=== PATIENT | female | born 1935 | race Caucasian/White ===

== ENCOUNTER 2016-08-15 17:13 | Emergency (ER) | payer MEDICARE, OTHER ==
[~2016-08-15] VITALS: Ht 147.3 cm; Wt 50.0 kg
[~2016-08-15 17:13] MED LIST: CEPH-460 PO; NAPR500T PO
[2016-08-15 17:21] VITALS: BP 196/95; PULSE 88; RESP 15; TEMP 97.9; O2SAT 98
[2016-08-15] MEDS ORDERED: OMEP20TA PO (17:34)
[2016-08-15 17:39] VITALS: BP 161/81; PULSE 79; RESP 17; O2SAT 100
[2016-08-15] MEDS ORDERED: SODIUM CHLORIDE 0.9% FLUSH 5 ML FLUSH IVF PRN (17:45)
[2016-08-15 17:54] VITALS: O2SAT 100
--- NOTE | 2016-08-15 17:58 | PD ---
HPI Chief Complaint: Pain: Acute or Chronic Time Seen by Provider: 17:30 Travel History International Travel<30 days: No Contact w/Intl Traveler<30days: No Traveled to known affect area: No History of Present Illness HPI Patient is an 80-year-old female presenting to the emergency room for evaluation of left foot pain. Patient states it's been hurting her for 2-3 days. She denies any injury or trauma. She states that her left lower leg is chronically swollen, she was using compression hose but discontinued them. Patient reports feeling very tired and fatigued. She had an EGD done last week due to anemia. Patient's friend/caregiver is present with her. PFSH Past Medical History Arthritis: Yes Asthma: No Autoimmune Disease: Yes (LUPUS) Blood Disorders: No Anxiety: No Depression: No Heart Rhythm Problems: No Cancer: Yes (SCC SKIN CA) Cardiovascular Problems: No High Cholesterol: No Chemotherapy: No Chest Pain: No Congestive Heart Failure: No COPD: No Cerebrovascular Accident: No Diabetes: Yes Patient Takes Glucophage: No Diminished Hearing: Yes (BILATERAL) Endocrine: Yes Gastrointestinal Disorders: Yes (CHRONIC CONSTIPATION) GERD: Yes Glaucoma: No Genitourinary: Yes (BLADDER STIMULATOR) Headaches: No Hiatal Hernia: No Kidney Stones: No Musculoskeletal: Yes (chronic back pain) Neurologic: No Psychiatric: No Reproductive: No Respiratory: No Immunizations Current: Yes Migraines: No Radiation Therapy: No Renal Failure: No Seizures: No Sickle Cell Disease: No Sleep Apnea: No Thyroid Disease: No Ulcer: No Tetanus Vaccination: Unknown Influenza Vaccination: Yes ?: Not Menopausal: Yes : 0 Past Surgical History Abdominal Surgery: No AICD: No Arteriovenous Shunt: No Cardiac Surgery: No Ear Surgery: No Endocrine Surgery: No Eye Surgery: Yes (SHERICE CATARACT REMOVAL) Genitourinary Surgery: Yes (BLADDER STIMULATOR) Gynecologic Surgery: No Insulin Pump: No Joint Replacement: Yes (BILATERAL hips) Pacemaker: No Thoracic Surgery: No Tonsillectomy: Yes Other Surgery: Yes Social History Alcohol Use: No Tobacco Use: No Substance Use: No Allergies-Medications (Allergen,Severity, Reaction): Coded Allergies: No Known Allergies (Verified , 08/15/16) Reported Meds & Prescriptions Reported Meds & Active Scripts Active Reported Omeprazole 20 Mg Tab 20 Mg PO BID Review of Systems Except as stated in HPI: all other systems reviewed are Neg General / Constitutional: Positive: Other (fatigue) HENT: No: Headaches Cardiovascular: No: Chest Pain or Discomfort Respiratory: No: Shortness of Breath Genitourinary: No: Dysuria Musculoskeletal: Positive: Myalgias, Edema, Pain Skin: Positive Change in Pigmentation Neurologic: No: Dizziness, Focal Abnormalities Physical Exam Narrative GENERAL: Thin, well-developed, alert elderly female. Resting comfortably in no acute distress. SKIN: Warm and dry. Ecchymosis noted to the plantar aspect of the left fourth toe, tender to palpation. HEAD: Atraumatic. Normocephalic. EYES: Pupils equal and round. No scleral icterus. No injection or drainage. Pale conjunctiva ENT: No nasal bleeding or discharge. Mucous membranes pink and moist. NECK: Trachea midline. No JVD. CARDIOVASCULAR: Regular rate and rhythm. No murmur appreciated. RESPIRATORY: No accessory muscle use. Clear to auscultation. Breath sounds equal , diminished in bases. GASTROINTESTINAL: Abdomen soft, non-tender, nondistended. Hepatic and splenic margins not palpable. MUSCULOSKELETAL: No obvious deformities. No clubbing. No cyanosis. 2+ pitting Edema to left lower leg, positive pedal pulses. NEUROLOGICAL: Awake and alert. No obvious cranial nerve deficits. Motor grossly within normal limits. Normal speech. PSYCHIATRIC: Appropriate mood and affect; insight and judgment normal. Data Data Last Documented VS Vital Signs Date Time Temp Pulse Resp B/P Pulse Ox O2 Delivery O2 Flow Rate FiO2 08/15/16 18:58 67 16 188/93 100 Room Air 08/15/16 17:21 97.9 Orders Complete Blood Count With Diff (08/15/16 17:40) Comprehensive Metabolic Panel (08/15/16 17:40) B-Type Natriuretic Peptide (08/15/16 17:40) Magnesium (Mg) (08/15/16 17:40) Iv Access Insert/Monitor (08/15/16 17:40) Electrocardiogram (08/15/16 17:40) Ecg Monitoring (08/15/16 17:40) Oximetry (08/15/16 17:40) Oxygen Administration (08/15/16 17:40) Sodium Chloride 0.9% Flush (Ns Flush) (08/15/16 17:45) Foot, Complete ([id number]) (08/15/16 ) Type And Screen (08/15/16 17:40) Acetaminophen (Tylenol) (08/15/16 19:30) Labs Laboratory Tests Test 08/15/16 17:50 White Blood Count 5.7 TH/MM3 Red Blood Count 3.55 MIL/MM3 Hemoglobin 9.0 GM/DL Hematocrit 28.5 % Mean Corpuscular Volume 80.4 FL Mean Corpuscular Hemoglobin 25.3 PG Mean Corpuscular Hemoglobin 31.4 % Concent Red Cell Distribution Width 16.8 % Platelet Count 323 TH/MM3 Mean Platelet Volume 7.8 FL Neutrophils (%) (Auto) 67.6 % Lymphocytes (%) (Auto) 23.2 % Monocytes (%) (Auto) 7.2 % Eosinophils (%) (Auto) 1.1 % Basophils (%) (Auto) 0.9 % Neutrophils # (Auto) 3.9 TH/MM3 Lymphocytes # (Auto) 1.3 TH/MM3 Monocytes # (Auto) 0.4 TH/MM3 Eosinophils # (Auto) 0.1 TH/MM3 Basophils # (Auto) 0.1 TH/MM3 CBC Comment DIFF FINAL Differential Comment Sodium Level 139 MEQ/L Potassium Level 4.3 MEQ/L Chloride Level 105 MEQ/L Carbon Dioxide Level 25.2 MEQ/L Anion Gap 9 MEQ/L Blood Urea Nitrogen 11 MG/DL Creatinine 0.82 MG/DL Estimat Glomerular Filtration 67 ML/MIN Rate Random Glucose 93 MG/DL Calcium Level 8.8 MG/DL Magnesium Level 2.2 MG/DL Total Bilirubin 0.3 MG/DL Aspartate Amino Transf 21 U/L (AST/SGOT) Alanine Aminotransferase 19 U/L (ALT/SGPT) Alkaline Phosphatase 84 U/L B-Type Natriuretic Peptide 193 PG/ML Total Protein 7.8 GM/DL Albumin 3.8 GM/DL Blood Type A POSITIVE Antibody Screen NEGATIVE MDM Medical Decision Making Medical Screen Exam Complete: Yes Emergency Medical Condition: Yes Interpretation(s) Laboratory Tests Test 08/15/16 17:50 White Blood Count 5.7 TH/MM3 Red Blood Count 3.55 MIL/MM3 Hemoglobin 9.0 GM/DL Hematocrit 28.5 % Mean Corpuscular Volume 80.4 FL Mean Corpuscular Hemoglobin 25.3 PG Mean Corpuscular Hemoglobin 31.4 % Concent Red Cell Distribution Width 16.8 % Platelet Count 323 TH/MM3 Mean Platelet Volume 7.8 FL Neutrophils (%) (Auto) 67.6 % Lymphocytes (%) (Auto) 23.2 % Monocytes (%) (Auto) 7.2 % Eosinophils (%) (Auto) 1.1 % Basophils (%) (Auto) 0.9 % Neutrophils # (Auto) 3.9 TH/MM3 Lymphocytes # (Auto) 1.3 TH/MM3 Monocytes # (Auto) 0.4 TH/MM3 Eosinophils # (Auto) 0.1 TH/MM3 Basophils # (Auto) 0.1 TH/MM3 CBC Comment DIFF FINAL Differential Comment Sodium Level 139 MEQ/L Potassium Level 4.3 MEQ/L Chloride Level 105 MEQ/L Carbon Dioxide Level 25.2 MEQ/L Anion Gap 9 MEQ/L Blood Urea Nitrogen 11 MG/DL Creatinine 0.82 MG/DL Estimat Glomerular Filtration 67 ML/MIN Rate Random Glucose 93 MG/DL Calcium Level 8.8 MG/DL Magnesium Level 2.2 MG/DL Total Bilirubin 0.3 MG/DL Aspartate Amino Transf 21 U/L (AST/SGOT) Alanine Aminotransferase 19 U/L (ALT/SGPT) Alkaline Phosphatase 84 U/L B-Type Natriuretic Peptide 193 PG/ML Total Protein 7.8 GM/DL Albumin 3.8 GM/DL Blood Type A POSITIVE Antibody Screen NEGATIVE Last Impressions Foot X-Ray 08/15/16 0000 Signed Impressions: Service Date/Time: Monday, August 15, 2016 17:43 - CONCLUSION: 1. Osteopenia. No acute fracture identified. Kenney Toney MD Vital Signs Date Time Temp Pulse Resp B/P Pulse Ox O2 Delivery O2 Flow Rate FiO2 08/15/16 17:39 79 17 161/81 100 Room Air 08/15/16 17:21 97.9 88 15 196/95 98 Differential Diagnosis CHF versus fracture versus contusion versus anemia versus other Narrative Course Patient is an 80-year-old female presented to the emergency department evaluation of left foot/left toe pain. She denied any injury or trauma. Patient is neurovascularly intact with a brisk less than 3 second capillary refill and a positive pedal pulse. There is ecchymosis noted to the plantar aspect of the left fourth and fifth toes. X-ray was negative for acute fracture. Patient's vital signs are stable, labs reviewed. Patient had an outpatient EGD done a week ago due to a downward trend in her hemoglobin. Patient was encouraged to follow-up with her primary care provider and GI doctor as scheduled. Chemistries unremarkable, BNP is 193. Patient has close follow-up with her primary doctor and program specialist. At this time we will discharge patient home. Patient was encouraged to rest, ice, elevate extremity. She was educated on the signs and symptoms of infection. She was encouraged to return to emergency department for any new or worsening symptoms. Patient was encouraged to take [id number] acetaminophen as needed and as directed for pain. Patient and caregiver verbalized understanding of these instructions. Patient is stable for discharge. Physician Communication Physician Communication Dr. Hopper Diagnosis Primary Impression: Contusion of toe of left foot Qualified Code: S90.122A - Contusion of toe of left foot, unspecified toe, initial encounter Additional Impression: Anemia Qualified Code: D64.9 - Anemia, unspecified type Referrals: Primary Care Physician 2 days Patient Instructions: Anemia (ED), Contusion in Adults (ED), General Instructions Additional Instructions: Follow-up with your primary doctor in 1-2 days Return to emergency department for any new or worsening symptoms Take over the counter acetaminophen as needed and as directed for pain Rest, ice, elevate extremity Return to emergency department for any new or worsening symptoms Med/Other Pt SpecificInfo: No Change to Meds Disposition: 01 DISCHARGE HOME Condition: Stable [place] Simon Aug 15, 2016 17:58
[2016-08-15 18:08] LABS: AUTOMATED NEUTROPHIL # 3.9 TH/MM3 (1.8-7.7); BASOPHIL # 0.1 TH/MM3 (0-0.2); BASOPHIL % 0.9 % (0.0-2.0); EOSINOPHIL # 0.1 TH/MM3 (0-0.4); EOSINOPHIL % 1.1 % (0.0-4.0); HEMATOCRIT 28.5 % (35.0-46.0); HEMO FLAGS DIFF FINAL; LYMPH % 23.2 % (9.0-44.0); LYMPHOCYTE # 1.3 TH/MM3 (1.0-4.8); MEAN CELL VOLUME 80.4 FL (80.0-100.0); MEAN CORPUSCULAR HEMOGLOBIN 25.3 PG (27.0-34.0); MEAN CORPUSCULAR HGB CONC 31.4 % (32.0-36.0); MONO % 7.2 % (0.0-8.0); NEUT % 67.6 % (16.0-70.0); PLATELET COUNT 323 TH/MM3 (150-450); RED BLOOD COUNT 3.55 MIL/MM3 (4.00-5.30); RED CELL DISTRIBUTION WIDTH 16.8 % (11.6-17.2); WHITE BLOOD COUNT 5.7 TH/MM3 (4.0-11.0)
[2016-08-15 18:35] LABS: ALT (GPT) 19 U/L (10-53); ANION GAP 9 MEQ/L (5-15); AST (GOT) 21 U/L (15-37); BICARBONATE 25.2 MEQ/L (21.0-32.0); BLOOD UREA NITROGEN 11 MG/DL (7-18); CHLORIDE 105 MEQ/L (98-107); GLOMERULAR FILTRATION RATE 67 ML/MIN (>89); MAGNESIUM 2.2 MG/DL (1.5-2.5); POTASSIUM 4.3 MEQ/L (3.5-5.1); SODIUM (NA) 139 MEQ/L (136-145)
[2016-08-15 18:37] LABS: ALKALINE PHOSPHATASE 84 U/L (45-117); TOTAL BILIRUBIN ADULT 0.3 MG/DL (0.2-1.0)
[2016-08-15 18:58] VITALS: BP 188/93; PULSE 67; RESP 16; O2SAT 100
--- NOTE | 2016-08-15 19:08 | RADRPT ---
EXAM DATE/TIME: 08/15/2016 17:43 [facility] COMPARISON: No previous studies available for comparison. INDICATIONS : Left foot pain and swelling. No known injury. Most pain felt in fourth digit. MEDICAL HISTORY : None. SURGICAL HISTORY : None. ENCOUNTER: Initial ACUITY: 2 days PAIN SCORE: 10/10 LOCATION: Left distal foot. FINDINGS: Three view examination of the left foot demonstrates no dislocation, or fracture. The tarsal bones appear intact. The interphalangeal and metatarsophalangeal joints are intact. The calcaneus is inta ct. Bony mineralization is decreased. CONCLUSION: 1. Osteopenia. No acute fracture identified. Kenney Toney MD on August 15, 2016 at 19:05 Board Certified Radiologist. This report was verified electronically.
[2016-08-15] MEDS ORDERED: ACETAMINOPHEN 325 MG TAB PO ONE (19:30)
--- NOTE | 2016-08-16 14:29 | EKG ---
Date Performed: 08/15/2016 Time Performed: 18:17:40 PTAGE: 80 years EKG: Sinus rhythm NORMAL ECG PREVIOUS TRACING : 09/02/2015 22.15 DOCTOR: Dennys Collazo Interpretating Date/Time 08/16/2016 14:26:49
== END 2016-08-15 20:23 | disposition home or self-care (01) ==
LOC: NEPE 17:13
DX: S90.32XA Contusion of left foot, initial encounter (principal); D64.9 Anemia, unspecified; M32.9 Systemic lupus erythematosus, unspecified; E11.9 Type 2 diabetes mellitus without complications; K21.9 Gastro-esophageal reflux disease without esophagitis; X58.XXXA Exposure to other specified factors, initial encounter
CPT/HCPCS: 73630; 80053; 83735; 83880; 85025; 86850; 86900; 86901; 93005